=== PATIENT | female | born 1960 | race Caucasian/White ===

== ENCOUNTER 2018-10-19 08:42 | Emergency (ER) | payer BC ==
[~2018-10-19] VITALS: Ht 165.1 cm; Wt 56.7 kg
== END 2018-10-19 12:34 | disposition home or self-care (01) ==
LOC: ER 08:42
DX: S93.692A Other sprain of left foot, initial encounter (principal); X50.0XXA Overexertion from strenuous movement or load, initial encounter; Y93.01 Activity, walking, marching and hiking; Y92.018 Other place in single-family (private) house as the place of occurrence of the external cause; Y99.8 Other external cause status